=== PATIENT | female | born 1985 | race Caucasian/White ===

== ENCOUNTER → 2016-05-12 | Outpatient (REF) | payer BC ==
[~2016-05-12] MED LIST: ACET50TA PO; DHA1CAP2 PO; IBUP80TA PO; PRENTAB40 PO
== END ==
LOC: M LAB REF 12:47
PROVIDERS: ATTEND Advanced Practice Midwife
DX: Z12.4 Encounter for screening for malignant neoplasm of cervix (principal)

== ENCOUNTER → 2016-10-06 | Outpatient (CLI) | payer BC ==
[2016-10-06 13:41] LABS: BASO # 0.1 K/mm3 (0.0-0.2); BASO % 0.9 % (0.0-1.0); EOS # 0.1 K/mm3 (0.0-0.50); LARGE UNSTAINED CELL # 0.1 K/mm3 (0.0-0.4); LARGE UNSTAINED CELL % 1.9 % (0.0-4.0); LYMPH # 1.8 K/mm3 (1.5-4.5); LYMPH % 24.5 % (24.0-44.0); MEAN CORPUSCULAR HEMOGLOBIN 32.2 pg (27.0-33.0); MEAN CORPUSCULAR HGB CONC 35.2 g/dl (32.0-36.5); MEAN CORPUSCULAR VOLUME 91.4 fl (80.0-96.0); MONO # 0.4 K/mm3 (0.0-0.8); MONO % 5.3 % (0.0-5.0); NEUTROPHILS # 4.9 K/mm3 (1.8-7.7); NEUTROPHILS % 66.5 % (36.0-66.0); PLATELET COUNT, AUTOMATED 237 k/mm3 (150-450); RED CELL DISTRIBUTION WIDTH 12.3 % (11.5-14.5); WHITE BLOOD COUNT 7.4 K/mm3 (4.0-10.0)
[2016-10-06 13:57] LABS: HBsAg Prenatal NEGATIVE (NEGATIVE)
== END ==
LOC: M SMT 09:07
PROVIDERS: ATTEND Advanced Practice Midwife
DX: Z34.81 Encounter for supervision of other normal pregnancy, first trimester (principal)

== ENCOUNTER → 2016-12-07 | Outpatient (CLI) | payer BC | LOC: M SMT 09:33 | PROVIDERS: ATTEND Obstetrics & Gynecology | DX: Z13.79 Encounter for other screening for genetic and chromosomal anomalies (principal) ==

== ENCOUNTER → 2017-01-07 | Outpatient (CLI) | payer BC ==
--- NOTE | 2017-01-07 11:04 | REP ---
Obstetric ultrasound for anatomy: There is a single intrauterine gestation in a breech presentation. There is movement and cardiac activity. The heart rate is 140 beats per minute. The placenta is anterior. There is no placenta previa or abruptio. Placenta is grade 1. The amniotic fluid volume subjectively is normal. The cervix 4.0 cm length. Maternal adnexa and cul-de-sac are unremarkable. By the ultrasound today the gestational age is 20 weeks 4 days with an JAREN of 05/23/2017. By LMP gestational age is 19 weeks 4 days with an JAREN of 05/30/2017. weight is 368 grams (0 pounds, 12 ounces). This is the 87th percentile for 19 weeks 4 days. The following anatomic structures are identified and are unremarkable: Intracranial lateral ventricles, choroid plexus, cerebellum, cavum septum pellucidum, facial profile, lungs, cardiac right and left ventricular outflow tracts, diaphragm, stomach, cord insertion, three-vessel cord, kidneys, bladder, spine and upper lower extremities. Suboptimally demonstrated because of position are the upper lip and the four-chamber view of the heart. A followup study dedicated to these structures might be considered. Otherwise, there are no anomalies. Signed by Michael Ordonez MD 01/07/2017 10:56 A
== END ==
LOC: M RAD 08:40
PROVIDERS: ATTEND Obstetrics & Gynecology
DX: Z36 Encounter for antenatal screening of mother (principal); Z3A.20 20 weeks gestation of pregnancy

== ENCOUNTER → 2017-01-24 | Outpatient (CLI) | payer BC ==
--- NOTE | 2017-01-25 04:42 | REP ---
Clinical: Anatomical evaluation. Comparison: 01/07/2017 . Findings: Examination demonstrates a single live intrauterine in transverse (head to maternal left) presentation. motion is identified by technologist. Placenta is noted anteriorly and grade zero without evidence for placenta previa or abruption. Amniotic fluid volume is normal. Cervix measures 5.8 cm in length and appears closed. No evidence for nuchal cord. Gestational age by LMP 22 weeks 0 days with JAREN 05/30/1979 . Gestational age by current measurements 22 weeks 4 days with JAREN 05/26/2017 . FHR equals 140 beats per minute. Estimated weight 545 grams ( 76th percentile). Anatomical assessment demonstrates normal structures including cranium, choroid plexus, cavum, cerebellum/posterior fossa, facial features, lungs, four-chamber heart/ventricular outflow tracts, diaphragm, stomach, cord insertion/three-vessel cord, kidneys/bladder, spine, and extremities. Impression: Single live intrauterine in transverse lie demonstrating appropriate interval growth. Anatomical assessment is complete and normal. No gross abnormalities are identified. Signed by Paul Pagan MD 01/25/2017 04:34 A
== END ==
LOC: M RAD 09:14
PROVIDERS: ATTEND Obstetrics & Gynecology
DX: Z36.9 Encounter for antenatal screening, unspecified (principal); Z3A.22 22 weeks gestation of pregnancy

== ENCOUNTER → 2017-03-09 | Outpatient (CLI) | payer BC ==
[2017-03-09 09:51] LABS: MEAN CORPUSCULAR HEMOGLOBIN 32.6 pg (27.0-33.0); MEAN CORPUSCULAR HGB CONC 35.2 g/dl (32.0-36.5); MEAN CORPUSCULAR VOLUME 92.6 fl (80.0-96.0); PLATELET COUNT, AUTOMATED 222 10^3/uL (150-450); RED CELL DISTRIBUTION WIDTH 13.3 % (11.5-14.5); WHITE BLOOD COUNT 10.3 10^3/uL (4.0-10.0)
== END ==
LOC: M SMT 08:14
PROVIDERS: ATTEND Advanced Practice Midwife
DX: Z36.89 Encounter for other specified antenatal screening (principal); Z3A.00 Weeks of gestation of pregnancy not specified

== ENCOUNTER → 2017-05-02 | Outpatient (REF) | payer BC | LOC: M LAB REF 17:15 | DX: Z34.83 Encounter for supervision of other normal pregnancy, third trimester (principal) ==

== ENCOUNTER 2017-05-23 10:49 | Inpatient (IN) | payer BC ==
[2017-05-23] MEDS: PRENATAL VITAMINS CHEWABLE TABLET PO (09:00)
[2017-05-23] MEDS: OXYTOCIN INJ 10 UNITS/ML VIAL (J2590) IM (11:06)
[2017-05-23] MEDS ORDERED: DIBUCAINE 1% OINTMENT 30GM TOP (11:15)
[2017-05-23] MEDS ORDERED: PROMETHAZINE 25 MG TAB PO (11:15)
[2017-05-23] MEDS ORDERED: METHYLERGONOVINE MALEATE 0.2 MG TAB PO (11:15)
[2017-05-23] MEDS: MEASLES,MUMPS,RUBELLA VACCINE INJ (MMR-II) (90707) SC (13:46)
[2017-05-23] MEDS: RHOGAM 300 MCG (1500 IU) INJ (J2790) IM (13:46)
[2017-05-23] MEDS: IBUPROFEN 800 MG TAB PO ×2 (15:08→23:30)
[2017-05-23] MEDS: ACETAMINOPHEN 500 MG TAB PO ×2 (17:38→23:29)
[2017-05-23] MEDS: DOCUSATE SODIUM 100 MG CAP PO (23:29)
[2017-05-24] MEDS: ACETAMINOPHEN 500 MG TAB PO ×3 (06:11→19:50)
[2017-05-24] MEDS: PRENATAL VITAMINS CHEWABLE TABLET PO (09:00)
[2017-05-24] MEDS: IBUPROFEN 800 MG TAB PO ×2 (09:08→19:50)
[2017-05-25] MEDS: PRENATAL VITAMINS CHEWABLE TABLET PO (08:23)
[2017-05-25] MEDS: IBUPROFEN 800 MG TAB PO (08:24)
[2017-05-25] MEDS: INFLUENZA QUADRIVALENT PF VACCINE 0.5ML SYRINGE (90686) IM (11:09)
== END 2017-05-25 11:45 | disposition home or self-care (01) | DRG 560 ==
LOC: M LDO 10:49 → M LDI 10:57 → M OBS 14:26
PROVIDERS: Advanced Practice Midwife
PROC: 10E0XZZ Delivery of Products of Conception, External Approach (ICD-10-PCS; principal; 2017-05-23)
DX: O62.3 Precipitate labor (principal); Z37.0 Single live birth; Z3A.39 39 weeks gestation of pregnancy

== ENCOUNTER → 2018-04-28 | Outpatient (REF) | payer BC ==
[~2018-04-28] MED LIST changes: -ACET50TA PO; +COLA100C5 PO; +MAPA500T2 PO
[2018-05-02 15:26] LABS: HPV HYBRID CAPTURE II Negative (Negative)
== END ==
LOC: M LAB REF 17:21
PROVIDERS: ATTEND Advanced Practice Midwife
DX: Z12.4 Encounter for screening for malignant neoplasm of cervix (principal)
CPT/HCPCS: 87624; G0123